=== PATIENT | female | born 1940 | race Hispanic/Latino ===

== ENCOUNTER 2018-02-08 05:44 | Day surgery (SDC) | payer MEDICARE ==
[2018-02-05 13:47] VITALS: BP 122/57
[2018-02-05 14:04] LABS: BASOPHILS % (AUTO) 0.8 % (0.0-5.0); EOSINOPHILS % (AUTO) 3.9 % (0.0-8.0); HEMATOCRIT 37.7 % (36-48); LYMPHOCYTES % (AUTO) 31.5 % (21.0-51.0); MEAN CORPUSCULAR HEMOGLOBIN 29.1 pg (27.0-33.0); MEAN CORPUSCULAR HGB CONC 32.5 g/dL (32.0-36.0); MEAN CORPUSCULAR VOLUME 89.4 fL (79-99); MONOCYTES % (AUTO) 6.8 % (3.0-13.0); NUCLEATED RED BLOOD CELLS 0.1 % (0.0-0.19); PLATELET COUNT (AUTO) 185 K/uL (130-400); RED BLOOD CELL COUNT(AUTO) 4.21 MIL/uL (4.00-5.50); RED CELL DISTRIBUTION WIDTH 13.7 % (11.0-15.5)
[2018-02-05 14:07] LABS: POTASSIUM 4.4 mmol/L (3.5-5.1)
[~2018-02-08] VITALS: Ht 154.9 cm; Wt 60.7 kg
[2018-02-08] VITALS (17 sets, daily range): BP systolic 131–155; BP diastolic 54–82
[~2018-02-08 05:44] MED LIST: ACYCLOVIR TP; ALEN70TA47 PO; ASPI-1197 PO; CALC600T12 PO; HYDR-3421 PO; HYDROCORTISONE; IMIP25TA5 PO; LACTATED RINGERS 1000ML 1,000 ML IV SCH; MIRA25TA PO; OMEG-75 PO; OMEP20CA10 PO; POLYETHYLENE PO; PREMC TP
[2018-02-08] MEDS ORDERED: LIDOCAINE PF 2% 5ML ABBOJECT ONE (06:49)
[2018-02-08] MEDS ORDERED: PROPOFOL 10 MG/ML 20ML VIAL IV ONE (06:49)
[2018-02-08] MEDS ORDERED: ONDANSETRON HCL 4 MG/2 ML VIAL ONE (06:49)
[2018-02-08] MEDS ORDERED: EPHEDRINE SULFATE 50 MG/ML AMPULE ONE (06:49)
[2018-02-08] MEDS ORDERED: PHENYLEPHRINE HCL 10 MG/ML 1ML VIAL IV ONE (06:49)
[2018-02-08] MEDS: CEFAZOLIN SODIUM 1 GM VIAL IVP SCH ×2 (07:13→07:56)
[2018-02-08] MEDS ORDERED: FAMOTIDINE/PF 20 MG/2 ML VIAL IV ONE (07:19)
[2018-02-08] MEDS ORDERED: FENTANYL CITRATE PF 50 MCG/1 ML 2ML VIAL ONE ×2 (08:50→09:00)
== END 2018-02-08 10:55 | disposition home or self-care (01) ==
LOC: DAH 05:44
PROVIDERS: ATTEND Surgery
DX: N30.10 Interstitial cystitis (chronic) without hematuria (principal); Z79.899 Other long term (current) drug therapy; Z90.710 Acquired absence of both cervix and uterus; Z88.8 Allergy status to other drugs, medicaments and biological substances
CPT/HCPCS: 36415; 52260; 80048; 85025; 87088; 88108; 88305; A4344; A4354; A4358; J0690; J2001; J2370; J2405; J2704; J3010 ×2; J3490; J7120; A4218